=== PATIENT | female | born 1960 | race Caucasian/White ===

== ENCOUNTER 2022-07-09 08:13 | Outpatient (CLI) | payer OTHER, SELFPAY ==
[2022-07-09 10:22] LABS: Chloride* 108 mmol/L (96-114)
[2022-07-09 10:23] LABS: Albumin* 4.4 g/dL (3.3-5.0)
[2022-07-09 10:24] LABS: Potassium* 4.7 mmol/L (3.6-5.1); Sodium* 142 mmol/L (135-149)
[2022-07-09 10:26] LABS: Alanine Aminotransferase* 64 U/L (4-35); Alkaline Phosphatase* 76 U/L (40-150); Aspartate Amino Transferase* 42 U/L (12-35); Bilirubin Total* 0.5 mg/dL (0.1-1.5); Blood Urea Nitrogen* 15 mg/dL (7-30); Carbon Dioxide* 29 mmol/L (20-32); Creatinine* 0.7 mg/dL (0.5-1.5); Estimated Glomerular Filt Rate 99 ml/min; Glucose* 93 mg/dL (60-115); Total Protein* 7.2 g/dL (6.0-8.3)
[2022-07-09 10:27] LABS: Calcium* 9.4 mg/dL (8.4-10.6); HDL Cholesterol* 53 mg/dL (>=50); Triglycerides* 239 mg/dL (40-149)
[2022-07-10 19:05] LABS: Cholesterol* 284 mg/dL (90-199); LDL Cholesterol Calculated 183 mg/dL (<100)
== END 2022-07-09 08:14 | disposition home or self-care (01) ==
PROVIDERS: Visit Provider Internal Medicine
DX: Z13.6 Encounter for screening for cardiovascular disorders (principal)
CPT/HCPCS: 80053; 80061

== ENCOUNTER 2022-07-17 12:47 | Outpatient (CLI) | payer OTHER, SELFPAY ==
--- NOTE | 2022-07-17 13:00 | CRLHL7_ITS ---
For Patients: As a result of the Century Cures Act, medical imaging exams and procedure reports are released immediately into your electronic medical record. You may view this report before your referring provider. If you have questions, please contact your health care provider. DXA BONE MINERAL DENSITY STUDY Current height (in): 69.0. Weight (lb): 235.0. Menopause age: 57. Ethnicity: White. Reason for exam: Osteoporosis screening. 1. Have you had a previous hip or vertebral fracture? No. 2. Have you had any fractures during your adult life which did not result from significant trauma (e.g., auto accident)? No. 3. Did either of your parents have a hip fracture? No. 4. Do you smoke? No. 5. Have you ever taken Glucocorticoids? No. 6. Do you have rheumatoid arthritis? No. 7. Do you have secondary osteoporosis? No. 8. Do you drink 3 or more alcoholic drinks per day? No. 9. Are you being treated for osteoporosis? No. 10. Have you ever taken any of the following medications: Actonel, Evista, Fosamax, Miacalcin, Reclast, Boniva, Forteo, HRT (i.e. estrogen/hormone therapy), Protelos, Prolia, Vitamin D, Calcium, other ??? please specify. ANSWER: Yes, calcium, vitamin D. 11. Do you have any of the following medical conditions: Anorexia or bulimia, asthma or emphysema, end stage renal disease, hyperparathyroidism, any seizure disorders, cancer, inflammatory bowel diseases, hysterectomy, other ??? please specify. ANSWER: No. 12. What was your maximum height (inches)? 69. 13. Do you perform weight bearing exercise regularly? No. 14. Do you regularly consume dairy products? Yes. 15. Do you drink caffeinated beverages? Yes. 16. At what age did your period start? 13. 17. Are you premenopausal? No. 18. How many full term pregnancies have you had? 1. 19. Have you ever missed your period for more than 6 months in a row (not including or menopause)? No. TECHNIQUE: Bone mineral density study was performed using the [employer]. FINDINGS: The results of the study expressed as bone mineral density (BMD) are as follows: Lumbar spine L1 to L4: BMD: 1.246 g/cm2. T-score: 1.8. Z-score: 3.3. Neck Left: BMD: 0.986 g/cm2. T-score: 1.2. Z-score: 2.6. Right: BMD: 1.048 g/cm2. T-score: 1.8. Z-score: 3.1. Total Left: BMD: 1.091 g/cm2. T-score: 1.2. Z-score: 2.2. Right: BMD: 1.063 g/cm2. T-score: 1.0. Z-score: 2.0. IMPRESSION: Normal bone density. Chintan De León M.D. Diagnostic Radiologist [email or web address] Transcribed: 4:52 pm DW/Dictated by: Chintan De León MD @ 07/17/2022 3:41:00 PM (Electronically Signed)
== END 2022-07-17 12:48 | disposition home or self-care (01) ==
LOC: RAD 12:47
PROVIDERS: PCP Internal Medicine; Visit Provider Internal Medicine
DX: Z13.820 Encounter for screening for osteoporosis (principal)
CPT/HCPCS: 77080

== ENCOUNTER 2022-08-12 06:56 | Outpatient (CLI) | payer OTHER, SELFPAY ==
--- NOTE | 2022-08-12 08:17 | W.ANESCHARGE ---
Anesthesia Charges Start Date/Time Anesthesia Start Date: 08/12/22 Anesthesia Start Time: 07:46 Stop Date/Time Anesthesia Stop Date: 08/12/22 Anesthesia Stop Time: 08:11
--- NOTE | 2022-08-12 09:48 | W.ANESCHARGE ---
Anesthesia Charges Start Date/Time Anesthesia Start Date: 08/12/22 Anesthesia Start Time: 07:46 Stop Date/Time Anesthesia Stop Date: 08/12/22 Anesthesia Stop Time: 08:11
== END 2022-08-12 06:57 | disposition home or self-care (01) ==
LOC: OP CLINIC 06:57
PROVIDERS: PCP Internal Medicine; Visit Provider Internal Medicine
DX: Z12.11 Encounter for screening for malignant neoplasm of colon (principal); K63.5 Polyp of colon; K57.30 Diverticulosis of large intestine without perforation or abscess without bleeding
CPT/HCPCS: 00811; 45380; 88305; J2704

== ENCOUNTER 2022-09-18 14:46 | Outpatient (CLI) | payer OTHER, SELFPAY ==
--- NOTE | 2022-09-18 15:00 | CRLHL7_ITS ---
For Patients: As a result of the Cures Act, medical imaging exams and procedure reports are released immediately into your electronic medical record. You may view this report before your referring provider. If you have questions, please contact your health care provider. BILATERAL SCREENING MAMMOGRAM WITH COMPUTER-AIDED DETECTION AND TOMOSYNTHESIS TECHNIQUE: CC and MLO views were obtained. These mammographic images have been obtained using full-field digital technique. These mammographic images were interpreted with the benefit of computer-aided detection. Breast tomosynthesis was used in this interpretation. COMPARISON FILM: 10/24/20, 08/28/17, 02/02/15. FINDINGS: There are scattered areas of fibroglandular density. IMPRESSION: There is no radiographic evidence for malignancy. ASSESSMENT: BI-RADS Category 1: Negative RECOMMENDATION: Routine screening mammogram in 1 year. A lay language report of this examination will be provided to the patient. CHINTAN CANO M.D. Diagnostic Radiologist [email or web address] ANDREA/law Transcribed: 09/19/2022, 2:[address]/Dictated by: Chintan Cano MD @ 09/19/2022 9:18:00 AM (Electronically Signed)
== END 2022-09-18 14:47 | disposition home or self-care (01) ==
LOC: MAMMO 14:47
PROVIDERS: PCP Internal Medicine; Visit Provider Internal Medicine
DX: Z12.31 Encounter for screening mammogram for malignant neoplasm of breast (principal)
CPT/HCPCS: 77063; 77067

== ENCOUNTER 2023-08-28 07:50 | Outpatient (CLI) | payer OTHER, SELFPAY | END 2023-08-28 07:51 | disposition home or self-care (01) | LOC: NFLDREF 09-05 12:09 | PROVIDERS: PCP Internal Medicine; Referring Provider Internal Medicine; Visit Provider Internal Medicine | DX: E78.5 Hyperlipidemia, unspecified (principal) | CPT/HCPCS: 80053; 80061 ==

== ENCOUNTER 2023-09-25 15:12 | Outpatient (CLI) | payer OTHER, SELFPAY ==
--- NOTE | 2023-09-25 15:20 | MM_ITS ---
Patient: IGLESIA JOHN Facility:?[facility] Patient ID:?[id number] Site Patient ID:?[id number]. Site :?[id number] Study:?XRay-Breast Bilateral 3D W/CAD-09/25/2023 3:50:02 PM Ordering Physician:Moises Final Report: BILATERAL SCREENING MAMMOGRAM WITH COMPUTER-AIDED DETECTION AND TOMOSYNTHESIS TECHNIQUE: CC and MLO views were obtained. These mammographic images have been obtained using full-field digital technique. These mammographic images were interpreted with the benefit of computer-aided detection. Breast Tomosynthesis was used in this interpretation. COMPARISON FILM: 09/18/22, 10/24/20, 09/30/17. FINDINGS: There are scattered areas of fibroglandular density. IMPRESSION: There is no radiographic evidence for malignancy. ASSESSMENT: BI-RADS Category 1: Negative RECOMMENDATION: Routine screening mammogram in 1 year. A lay language report of this examination will be provided to the patient. Chintan De León M.D. Diagnostic Radiologist [email or web address] DSM/sp R& Transcribed: 6:01 p.m. SP/Dictated by: Chintan De León MD @ 09/26/2023 8:34:00 AM Signed by:?Chintan De León MD @09/26/2023 8:19:20 PM (Electronic Signature)
== END 2023-09-25 15:13 | disposition home or self-care (01) ==
LOC: MAMMO 15:13
PROVIDERS: PCP Internal Medicine; Visit Provider Internal Medicine
DX: Z12.31 Encounter for screening mammogram for malignant neoplasm of breast (principal)
CPT/HCPCS: 77063; 77067

== ENCOUNTER 2024-08-30 07:40 | Outpatient (CLI) | payer BC, SELFPAY | END 2024-08-30 07:41 | disposition home or self-care (01) | LOC: NFLDREF 09-01 05:07 | PROVIDERS: PCP Internal Medicine; Referring Provider Internal Medicine; Visit Provider Internal Medicine | DX: E78.5 Hyperlipidemia, unspecified (principal) | CPT/HCPCS: 80053; 80061 ==

== ENCOUNTER 2024-09-22 10:31 | Outpatient (CLI) | payer BC, SELFPAY ==
--- NOTE | 2024-09-22 10:45 | CRLHL7_ITS ---
For Patients: As a result of the Century Cures Act, medical imaging exams and procedure reports are released immediately into your electronic medical record. You may view this report before your referring provider. If you have questions, please contact your health care provider. INDICATION: FIBROID ON XRAY COMPARISON: Pelvic ultrasound 12/04/2010, x-ray 09/14/2024 TECHNIQUE: 2D scale and color Doppler images were acquired of the pelvis using a transabdominal and transvaginal approach. FINDINGS: Calcified uterine fibroid is present which measures 4.1 x 3.9 x 4.5 cm, located within the right anterior fundus, corresponding with x-ray findings and not significantly changed since the prior ultrasound. Additional noncalcified fibroid is present within the right posterior fundus measuring 3.7 x 3.0 x 3.2 cm. Uterus measures 8.6 cm in length by 5.1 cm in AP diameter by 6.5 cm in transverse dimension. Endometrium is heterogeneous with multiple small cysts and measures up to 17 millimeters. The ovaries are not visualized. There are no suspicious fluid collections within the cul-de-sac. IMPRESSION: Uterine fibroids measuring 4.5 cm and 3.7 cm. Thickened (17 millimeters) and heterogeneous endometrium with multiple small cysts, suggesting adenomyosis or hyperplasia. Dictated by Chintan De León MD @ 09/22/2024 11:47:31 AM (Electronically Signed)
== END 2024-09-22 10:32 | disposition home or self-care (01) ==
LOC: US 10:32
PROVIDERS: PCP Internal Medicine; Visit Provider Internal Medicine
DX: D21.9 Benign neoplasm of connective and other soft tissue, unspecified (principal); D25.9 Leiomyoma of uterus, unspecified; R93.89 Abnormal findings on diagnostic imaging of other specified body structures
CPT/HCPCS: 76830; 76856

== ENCOUNTER 2024-09-24 09:33 | Outpatient (CLI) | payer BC, SELFPAY ==
[2024-09-26 01:51] LABS: HPV Source Cervical; HPV, High Risk by TMA Not Detected
== END 2024-09-24 09:34 | disposition home or self-care (01) ==
PROVIDERS: PCP Internal Medicine; Visit Provider Obstetrics & Gynecology
DX: Z12.4 Encounter for screening for malignant neoplasm of cervix (principal); Z11.51 Encounter for screening for human papillomavirus (HPV)
CPT/HCPCS: 87624; 87625; 88141; 88142

== ENCOUNTER 2024-09-24 10:43 | Day surgery (SDC) | payer BC, SELFPAY ==
[2024-09-24] VITALS (10 sets, daily range): BP systolic 153–178; BP diastolic 88–101; PULSE 57–66; RESP 16; TEMP 36.2–36.6; O2SAT 99–100; BMI 36.6
[2024-09-24] MEDS: KETOROLAC 30 MG/ML inj IVP (11:20)
[2024-09-24] MEDS: LIDOCAINE 1% MDV 20 ML INJECTION (11:40)
[2024-09-24] MEDS: SILVER NITRATE APPLICATOR 1 EACH STICK..EA. TOPICAL (12:06)
--- NOTE | 2024-09-24 17:11 | P.GYNPRC_ITS ---
Procedure Note Date of procedure: 09/24/24 Will [facility] bill your pro fee for this procedure?: Yes Pre-op diagnosis: Thickened endometrium on pelvic ultrasound Post-op diagnosis: Endometrial polyps Procedure: Hysteroscopy, polypectomy, visual dilation and curettage Anesthesia: local Complications: None Surgeon: Sue Ashraf MD Estimated blood loss (mL): 10 IV fluids (mL): 0 Pathology: specimen obtained, sent to pathology (endometrial curettings) Condition: stable Disposition: same day Findings: 1. On pelvic exam, the vulva, vagina and cervix were normal in appearance. On bimanual exam, the uterus was anteverted and bulky consistent with fibroids seen on pelvic ultrasound. 2. Upon hysteroscopy, survey of the endocervix was normal. Survey of the endometrial cavity revealed one large polyp filling the cavity and running the entire length of the cavity. There was a second smaller polyp just adjacent to the stalk of the larger polyp, both arising from the right cornual region. The remaining endometrium was mostly atrophic in appearance, with a small patch thicker appearing endometrium near the posterior fundus. Cavity shape was normal. Bilateral tubal ostia were not visualized due to obscuring blood near the end of the procedure. Procedure Description: Procedure in detail: Patient was taken to the operating room with IV running. She was positioned in dorsal lithotomy position with her legs fully supported in Yellofin stirrups. She was prepped and draped in the usual sterile fashion. Exam was performed for the above-noted findings. Paracervical block was performed for total of approximately 15 mL of 1% lidocaine. Speculum was inserted. Cervix visualized and grasped along the anterior lip with a single-tooth tenaculum. Cervix was serially dilated to accommodate the TRUCLEAR hysteroscope. This was assembled with saline inflow and outflow in place. The line was flushed of bubbles. The hysteroscope was advanced through the cervix into the endometrial cavity for the above noted findings. The tissue morcellator was then inserted through the operating channel. Window lock was performed. Under direct visualization, the polyps were entirely removed and the endometrial cavity was circumferentially curetted with the tissue morcellator. Bleeding then obscured the view of the cavity, but all polyps and the patch of thickened endometrium had been thoroughly sampled by that point. The hysteroscope and morcellator were then removed from the uterus. Tenaculum was removed from the anterior lip of cervix. Hemostasis was achieved with silver nitrate. Patient tolerated procedure well. She was taken to recovery area in stable condition.
== END 2024-09-24 12:26 | disposition home or self-care (01) ==
PROVIDERS: PCP Internal Medicine; Visit Provider Obstetrics & Gynecology
PROC: 0UDB8ZZ Extraction of Endometrium, Via Natural or Artificial Opening Endoscopic (ICD-10-PCS; CPT 58558; principal; 2024-09-24 11:15)
DX: N84.0 Polyp of corpus uteri (principal); R93.89 Abnormal findings on diagnostic imaging of other specified body structures
CPT/HCPCS: 58558; 36415; 86850; 86900; 86901; 88305; J2003; A9270; C1782; J1885

== ENCOUNTER 2025-04-07 15:05 | Outpatient (CLI) | payer BC, SELFPAY ==
--- NOTE | 2025-04-07 15:20 | CRLHL7_ITS ---
For Patients: As a result of the Century Cures Act, medical imaging exams and procedure reports are released immediately into your electronic medical record. You may view this report before your referring provider. If you have questions, please contact your health care provider. INDICATION: BILATERAL SCREENING MAMMOGRAM, ASYMPTOMATIC 64 Y/O FEMALE COMPARISON: 09/25/2023, 09/18/2022, 10/24/2020 TECHNIQUE: Digital mammogram in CC and MLO projections including computer-aided detection (CAD) and tomosynthesis. BREAST COMPOSITION: There are scattered areas of fibroglandular density. FINDINGS: No suspicious findings. ASSESSMENT: BI-RADS 2 Benign RECOMMENDATION: Annual screening mammogram. A lay language report of this examination will be provided to the patient. Dictated by: Chintan De León MD @ 04/08/2025 10:05:49 (Electronically Signed)
== END 2025-04-07 15:06 | disposition home or self-care (01) ==
LOC: MAMMO 15:06
PROVIDERS: PCP Internal Medicine; Visit Provider Internal Medicine
DX: Z12.31 Encounter for screening mammogram for malignant neoplasm of breast (principal)
CPT/HCPCS: 77063; 77067